=== PATIENT | male | born 1995 | race Caucasian/White ===

== ENCOUNTER 2020-11-16 08:24 | Emergency (ER) | payer OTHER ==
[2020-11-16] MEDS ORDERED: TETANUS & DIPHTHERIA TOX,ADULT 0.5 ML VIAL ONE (09:07)
--- NOTE | 2020-11-16 09:11 | EDPHYS ---
Physician Documentation [facility] Name: Phil Yoder Age: 25 yrs Sex: Male : 1995 Arrival Date: 11/16/2020 Time: 08:27 Bed 4 Private MD: ED Physician Sha Mota HPI: 11/16 08:58 This 25 yrs old Male presents to ER via Ambulatory with complaints of Finger ryan Laceration. Historical: - Allergies: 08:42 No Known Allergies; hb - Home Meds: 08:42 None [Active]; hb - PMHx: 08:42 None; hb - PSHx: 08:42 Knee - Right; hb - Social history:: Smoking status: Patient reports the use of cigarette tobacco products, smokes one pack cigarettes per day. ROS: 09:03 MS/extremity: Positive for laceration, of the palmar aspect of distal phalanx of right ryan middle finger. 09:06 Constitutional: Negative for fever, chills, and weight loss, Eyes: Negative for injury, ryan pain, redness, and discharge, ENT: Negative for injury, pain, and discharge, Neck: Negative for injury, pain, and swelling, Cardiovascular: Negative for chest pain, palpitations, and edema, Respiratory: Negative for shortness of breath, cough, wheezing, and pleuritic chest pain, Abdomen/GI: Negative for abdominal pain, nausea, vomiting, diarrhea, and constipation, Back: Negative for injury and pain, : Negative for injury, bleeding, discharge, and swelling, Skin: Negative for injury, rash, and discoloration, Psych: Negative for depression, anxiety, suicide ideation, homicidal ideation, and hallucinations, Allergy/Immunology: Negative for hives, rash, and allergies, Endocrine: Negative for neck swelling, polydipsia, polyuria, polyphagia, and marked weight changes, Hematologic/Lymphatic: Negative for swollen nodes, abnormal bleeding, and unusual bruising. 09:06 MS/extremity: Positive for Exam: 09:03 Constitutional: This is a well developed, well nourished patient who is awake, alert, ryan and in no acute distress. Head/Face: Normocephalic, atraumatic. Eyes: Pupils equal round and reactive to light, extra-ocular motions intact. Lids and lashes normal. Conjunctiva and sclera are non-icteric and not injected. Cornea within normal limits. Periorbital areas with no swelling, redness, or edema. ENT: Nares patent. No nasal discharge, no septal abnormalities noted. Tympanic membranes are normal and external auditory canals are clear. Oropharynx with no redness, swelling, or masses, exudates, or evidence of obstruction, uvula midline. Mucous membranes moist. Neck: Trachea midline, no thyromegaly or masses palpated, and no cervical lymphadenopathy. Supple, full range of motion without nuchal rigidity, or vertebral point tenderness. No Meningismus. Chest/axilla: Normal chest wall appearance and motion. Nontender with no deformity. No lesions are appreciated. Cardiovascular: Regular rate and rhythm with a normal S1 and S2. No gallops, murmurs, or rubs. Normal PMI, no JVD. No pulse deficits. Respiratory: Lungs have equal breath sounds bilaterally, clear to auscultation and percussion. No rales, rhonchi or wheezes noted. No increased work of breathing, no retractions or nasal flaring. Abdomen/GI: Soft, non-tender, with normal bowel sounds. No distension or tympany. No guarding or rebound. No evidence of tenderness throughout. Back: No spinal tenderness. No costovertebral tenderness. Full range of motion. Male : Normal genitalia with no discharge or lesions. Skin: Warm, dry with normal turgor. Normal color with no rashes, no lesions, and no evidence of cellulitis. Neuro: Awake and alert, GCS 15, oriented to person, place, time, and situation. Cranial nerves II-XII grossly intact. Motor strength 5/5 in all extremities. Sensory grossly intact. Cerebellar exam normal. Normal gait. Psych: Awake, alert, with orientation to person, place and time. Behavior, mood, and affect are within normal limits. 09:03 Musculoskeletal/extremity: Extremities: noted in the palmar aspect of distal phalanx of right middle finger: laceration, ROM: intact in all extremities, full active range of motion, full passive range of motion, Circulation is intact in all extremities. Sensation intact. Compartment Syndrome exam of affected extremity: is normal. DVT Exam: No signs of deep vein thrombosis. no pain, no swelling, no tenderness, negative Homans' sign noted on exam, no appreciated bluish discoloration, no erythema, no increased warmth. Vital Signs: 08:40 BP 136 / 82; Pulse 68; Resp 16; Temp 97.1; Pulse Ox 100% on R/A; Pain 3/10; hb MDM: 08:[address] [facility] 09:02 Data reviewed: vital signs, nurses notes, radiologic studies. [facility] 11/16 08:51 Order name: Wound dressing; Complete Time: 09:36 ryan Administered Medications: 09:30 Drug: Neosporin (konfoqrq-qxzapsnnjb-ivrddzuut) Ointment 1 application Route: Topical; em Site: wound; 09:37 Follow up: Response: Medication administered at discharge. em 09:36 Not Given (Other Intervention Used): Bactroban (mupirocin) Ointment 2 % 1 application em Topical once Disposition: 11/16/20 09:10 Discharged to Home. Impression: Laceration without foreign body of finger without damage to nail - superficial. - Condition is Stable. - Discharge Instructions: Laceration Care, Adult, Laceration Care, Adult, [id number]. - Prescriptions for Tylenol- Codeine #3 300-30 mg Oral Tablet - take 2 tablets by ORAL route every 4-6 hours As needed; 20 tablet. Bactroban 2 % Topical Ointment - Apply to affected area 1 application by TOPICAL route every 12 hours; 15 gram. - Medication Reconciliation Form, Thank You Letter, Antibiotic Education, Prescription Opioid Use, Work release form form. - Follow up: Private Physician; When: 2 - 3 days; Reason: Recheck today's complaints, Continuance of care, Re-evaluation by your physician. Follow up: Zach Fowler MD; When: 2 - 3 days; Reason: Recheck today's complaints, Re-evaluation by your physician. - Problem is new. - Symptoms have improved. Signatures: Sha Mota MD MD cha Munoz, Edgar, RN RN Hilary Becker RN RN Corrections: (The following items were deleted from the chart) 09:02 08:58 The patient presents with decreased range of motion, pain, [facility] 09:02 08:58 The complaints affect the back of neck, [facility] 09:03 08:59 Constitutional: Negative for fever, chills, and weight loss, Eyes: Negative for [facility] injury, pain, redness, and discharge, ENT: Negative for injury, pain, and discharge, Cardiovascular: Negative for chest pain, palpitations, and edema, Respiratory: Negative for shortness of breath, cough, wheezing, and pleuritic chest pain, Abdomen/GI: Negative for abdominal pain, nausea, vomiting, diarrhea, and constipation, Back: Negative for injury and pain, : Negative for injury, bleeding, discharge, and swelling, Skin: Negative for injury, rash, and discoloration, Neuro: Negative for headache, weakness, numbness, tingling, and seizure, Psych: Negative for depression, anxiety, suicide ideation, homicidal ideation, and hallucinations, Allergy/Immunology: Negative for hives, rash, and allergies, Endocrine: Negative for neck swelling, polydipsia, polyuria, polyphagia, and marked weight changes, Hematologic/Lymphatic: Negative for swollen nodes, abnormal bleeding, and unusual bruising, [facility] 09:03 08:59 MS/extremity: Positive for decreased range of motion, pain, tenderness, of the [facility] right knee, [facility] 09:03 08:59 Constitutional: This is a well developed, well nourished patient who is awake, ryan alert, and in no acute distress. Head/Face: Normocephalic, atraumatic. Eyes: Pupils equal round and reactive to light, extra-ocular motions intact. Lids and lashes normal. Conjunctiva and sclera are non-icteric and not injected. Cornea within normal limits. Periorbital areas with no swelling, redness, or edema. ENT: Nares patent. No nasal discharge, no septal abnormalities noted. Tympanic membranes are normal and external auditory canals are clear. Oropharynx with no redness, swelling, or masses, exudates, or evidence of obstruction, uvula midline. Mucous membranes moist. Chest/axilla: Normal chest wall appearance and motion. Nontender with no deformity. No lesions are appreciated. Cardiovascular: Regular rate and rhythm with a normal S1 and S2. No gallops, murmurs, or rubs. Normal PMI, no JVD. No pulse deficits. Respiratory: Lungs have equal breath sounds bilaterally, clear to auscultation and percussion. No rales, rhonchi or wheezes noted. No increased work of breathing, no retractions or nasal flaring. Abdomen/GI: Soft, non-tender, with normal bowel sounds. No distension or tympany. No guarding or rebound. No evidence of tenderness throughout. Back: No spinal tenderness. No costovertebral tenderness. Full range of motion. Male : Normal genitalia with no discharge or lesions. Skin: Warm, dry with normal turgor. Normal color with no rashes, no lesions, and no evidence of cellulitis. MS/ Extremity: Pulses equal, no cyanosis. Neurovascular intact. Full, normal range of motion. Neuro: Awake and alert, GCS 15, oriented to person, place, time, and situation. Cranial nerves II-XII grossly intact. Motor strength 5/5 in all extremities. Sensory grossly intact. Cerebellar exam normal. Normal gait. Psych: Awake, alert, with orientation to person, place and time. Behavior, mood, and affect are within normal limits. ryan 09:03 08:59 Neck: External neck: is normal, no acute changes, C-spine: appears grossly ryan normal, Thyroid: appears normal, Trachea: is midline with no obvious abnormalities, ryan 09:03 08:59 Chest/axilla: Exam negative for ryan ryan 09:03 08:59 Musculoskeletal/extremity: Compartment Syndrome exam of affected extremity: is ryan normal. no pain, no numbness, no tingling, no sensation deficit, no palor, no weak pulses, ryan 09:11 09:10 11/16/2020 09:10 Discharged to Home. Impression: Laceration without foreign body ryan of finger without damage to nail - superficial. Condition is Stable. Forms are Medication Reconciliation Form, Thank You Letter, Antibiotic Education, Prescription Opioid Use. Follow up: Private Physician; When: 2 - 3 days; Reason: Recheck today's complaints, Continuance of care, Re-evaluation by your physician. Problem is new. Symptoms have improved. ryan 09:37 09:11 11/16/2020 09:10 Discharged to Home. Impression: Laceration without foreign body em of finger without damage to nail - superficial. Condition is Stable. Forms are Medication Reconciliation Form, Thank You Letter, Antibiotic Education, Prescription Opioid Use. Follow up: Private Physician; When: 2 - 3 days; Reason: Recheck today's complaints, Continuance of care, Re-evaluation by your physician. Follow up: Zach Fowler; When: 2 - 3 days; Reason: Recheck today's complaints, Re-evaluation by your physician. Problem is new. Symptoms have improved. ryan
--- NOTE | 2020-11-16 09:11 | ER ---
Nurse's Notes [facility] Name: Phil Yoder Age: 25 yrs Sex: Male : 1995 Arrival Date: 11/16/2020 Time: 08:27 Bed 4 Private MD: Diagnosis: Laceration without foreign body of finger without damage to nail-superficial Presentation: 11/16 08:40 Chief complaint: Laceration to right middle finger with serrated knife. Bleeding hb controlled. Coronavirus screen: At this time, the client does not indicate any symptoms associated with coronavirus-19. Ebola Screen: No symptoms or risks identified at this time. Initial Sepsis Screen: Does the patient meet any 2 criteria? No. Patient's initial sepsis screen is negative. Does the patient have a suspected source of infection? No. Patient's initial sepsis screen is negative. Risk Assessment: Do you want to hurt yourself or someone else? Patient reports no desire to harm self or others. Onset of symptoms was November 16, 2020. 08:40 Method Of Arrival: Ambulatory hb 08:40 Acuity: BAKARI 4 hb Historical: - Allergies: 08:42 No Known Allergies; hb - Home Meds: 08:42 None [Active]; hb - PMHx: 08:42 None; hb - PSHx: 08:42 Knee - Right; hb - Social history:: Smoking status: Patient reports the use of cigarette tobacco products, smokes one pack cigarettes per day. Screenin:44 Abuse screen: Denies threats or abuse. Nutritional screening: No deficits noted. em Tuberculosis screening: No symptoms or risk factors identified. Fall Risk None identified. Assessment: 08:45 General: Appears in no apparent distress. comfortable, Behavior is calm, cooperative, em appropriate for age. Pain: Complains of pain in palmar aspect of distal phalanx of right middle finger Pain currently is 3 out of 10 on a pain scale. Neuro: Level of Consciousness is awake, alert, obeys commands, Oriented to person, place, time, situation. Cardiovascular: Capillary refill < 3 seconds Patient's skin is warm and dry. Respiratory: Airway is patent Respiratory effort is even, unlabored, Respiratory pattern is regular, symmetrical. Derm: Skin is intact, is healthy with good turgor, Skin is pink, warm \T\ dry. Musculoskeletal: Capillary refill < 3 seconds, Range of motion: intact in all extremities. Injury Description: Laceration sustained to palmar aspect of distal phalanx of right middle finger is clean, 0.5 to 2.5 cm long, was sustained 30-60 minutes ago. a small amount of bleeding noted at this time. Vital Signs: 08:40 BP 136 / 82; Pulse 68; Resp 16; Temp 97.1; Pulse Ox 100% on R/A; Pain 3/10; hb ED Course: 08:27 Patient arrived in ED. mr 08:41 Triage completed. hb 08:42 Arm band placed on. hb 08:44 Sha Mota MD is Attending Physician. ryan 08:44 Emory Cabral, RN is Primary Nurse. em 08:44 Patient has correct armband on for positive identification. Call light in reach. em 09:10 Zach Fowler MD is Referral Physician. ryan 09:35 No provider procedures requiring assistance completed. Patient did not have IV access em during this emergency room visit. Administered Medications: 09:30 Drug: Neosporin (uefixhqr-vzqwfpvkap-rdruapxoc) Ointment 1 application Route: Topical; em Site: wound; 09:37 Follow up: Response: Medication administered at discharge. em 09:36 Not Given (Other Intervention Used): Bactroban (mupirocin) Ointment 2 % 1 application em Topical once Outcome: 09:10 Discharge ordered by . ryan 09:35 Discharged to home ambulatory, with family. em 09:35 Condition: good 09:35 Discharge instructions given to patient, family, Instructed on discharge instructions, follow up and referral plans. medication usage, wound care, Demonstrated understanding of instructions, follow-up care, medications, wound care, Prescriptions given X 2. 09:37 Patient left the ED. em Signatures: Sha Mota MD MD cha Rivera, Mary mr Emory Cabral, KERLINE RN em Hilary Becker RN RN
[2020-11-16 09:43] VITALS: BP 136/82; TEMP 97.1; O2SAT 100
== END 2020-11-16 09:37 | disposition home or self-care (01) ==
LOC: ER 08:24
DX: S61.212A Laceration without foreign body of right middle finger without damage to nail, initial encounter (principal); F17.210 Nicotine dependence, cigarettes, uncomplicated
CPT/HCPCS: 90714; 99283

== ENCOUNTER 2023-06-17 12:38 | Emergency (ER) | payer SELFPAY ==
--- NOTE | 2023-06-17 13:32 | RAD REPORT ---
EXAM DESCRIPTION: CT - Chest For Pe Angio - 06/17/2023 1:17 pm CLINICAL HISTORY: Chest pain COMPARISON: None. TECHNIQUE: Dynamically enhanced axial 3 mm thick images of the chest were obtained during administra tion of 100 mL Isovue 370 IV contrast. Coronal and oblique reconstruction images were generated and r eviewed. Exam utilizes a protocol for optimal evaluation of pulmonary arterial tree. Maximum intensity projections 3D imaging was utilized All CT scans are performed using dose optimization technique as appropriate and may include automated exposure control or mA/KV adjustment according to patient size. FINDINGS: A pulmonary embolus is not seen. A thoracic aortic aneurysm is not noted. A pleural effusion is not seen. A pericardial effusion is not seen. A lung consolidation is not present. IMPRESSION: Negative for a pulmonary embolism.
[2023-06-17 13:36] LABS: Hematocrit 49.2 % (39.6-49.0); Lymphocytes % 29.9 % (15.3-44.8); MCV 82.2 fL (80-100); MPV 8.1 fL (7.6-11.3); Platelets 256 thou/uL (152-406); RBC Red Blood Cell Count 5.99 M/uL (4.33-5.43)
--- NOTE | 2023-06-17 13:38 | RAD REPORT ---
EXAM DESCRIPTION: CT - Stone Protocol - 06/17/2023 1:17 pm CLINICAL HISTORY: Abdominal pain. Flank pain. Back pain COMPARISON: None. TECHNIQUE: Computed axial tomography of the abdomen pelvis was obtained without oral or IV contrast. Lack of IV and oral contrast limits evaluation of solid organs, appendix, bowel, and vessels. Esqueda l reformatted images were obtained and reviewed. All CT scans are performed using dose optimization technique as appropriate and may include automated exposure control or mA/KV adjustment according to patient size. FINDINGS: A renal calculus is not seen. An ureteral calculus is not noted. A bladder calculus is not present. No hydronephrosis The liver, spleen, pancreas and adrenals appear grossly normal There is no evidence of diverticulitis. The appendix appears normal Mild posterior subluxation L5 on S1. Mild spondylosis. Tiny umbilical hernia IMPRESSION: Negative for a genitourinary calculus
[2023-06-17 13:56] LABS: Albumin 4.4 g/dL (3.4-5.0); Bilirubin Direct 0.1 mg/dL (0-0.2); Bilirubin Indirect, Calculated 0.4 mg/dL (0.2-0.8); Bilirubin Total 0.5 mg/dL (0.2-1.0); Potassium 4.1 mEq/L (3.5-5.1); Protein, Total 8.8 g/dL (6.4-8.2); Troponin High Sensitivity 4.3 pg/mL (<58.9)
--- NOTE | 2023-06-17 14:33 | RAD REPORT ---
EXAM DESCRIPTION: Wendie Single View06/17/2023 2:13 pm CLINICAL HISTORY: Pleuritic pain COMPARISON: none FINDINGS: The lungs appear clear of acute infiltrate. The heart is normal size IMPRESSION: No acute abnormalities displayed
--- NOTE | 2023-06-17 14:54 | EDPHYS ---
Physician Documentation [facility] Name: Phil Yoder Age: 27 yrs Sex: Male : 1995 Arrival Date: 06/17/2023 Time: 12:38 Bed DIS3 Private MD: ED Physician Braden Winn HPI: 06/17 12:56 This 27 yrs old Male presents to ER via Ambulatory with complaints of Back Pain, rn Breathing Difficulty. 12:56 The patient presents with pain that is acute, with no known mechanism of injury. The rn symptoms are located in the thoracic area. Onset: The symptoms/episode began/occurred just prior to arrival. The pain does not radiate. Associated signs and symptoms: Pertinent negatives: abdominal pain, fever, hematuria, tingling, urinary retention, vomiting, weakness. Modifying factors: The patient symptoms are alleviated by remaining still, the patient symptoms are aggravated by any movement, Deep breath. 12:56 Severity of symptoms: At their worst the symptoms were moderate, in the emergency rn department the symptoms have improved. The patient has not experienced similar symptoms in the past. The patient has not recently seen a physician. Patient reports felt entirely fine earlier today, was at work, no fall or trauma, then started to feel sharp stabbing pain intrascapular area. Denies any fever or recent illness. Denies radiation. Family member with kidney stones but denies any pain to the abdomen or groin. Denies urinary symptoms. Does smoke. Has never felt this before. No history of DVT or PE.. Historical: - Allergies: 12:46 No Known Allergies; cm10 - Home Meds: 12:46 None [Active]; cm10 - PMHx: 12:46 None; cm10 - PSHx: 12:46 None; cm10 - Immunization history:: Adult Immunizations unknown. - Social history:: Smoking status: Patient reports the use of cigarette tobacco products, smokes one-half pack cigarettes per day. - Family history:: not pertinent. - Hospitalizations: : No recent hospitalization is reported. ROS: 12:56 Constitutional: Negative for fever, chills, and weight loss, Eyes: Negative for injury, rn pain, redness, and discharge, Cardiovascular: Negative for chest pain, palpitations, and edema, Respiratory: Positive for pleuritic thoracic pain, negative for shortness of breath, negative for cough or hemoptysis Abdomen/GI: Negative for abdominal pain, nausea, vomiting, diarrhea, and constipation, Back: Positive for interscapular back pain MS/Extremity: Negative for injury and deformity, Skin: Negative for injury, rash, and discoloration, Neuro: Negative for headache, weakness, numbness, tingling, and seizure, Exam: 12:56 Constitutional: This is a well developed, well nourished patient who is awake, alert, rn in wheelchair and appears uncomfortable while talking and deep inspiration Head/Face: Normocephalic, atraumatic. Cardiovascular: Regular rate and rhythm. No pulse deficits. Respiratory: No increased work of breathing, no retractions or nasal flaring. Abdomen/GI: Soft, non-tender Back: No spinal tenderness, no costovertebral tenderness Vital Signs: 12:44 BP 129 / 84; Pulse 66; Resp 18 S; Temp 97.3(IR); Pulse Ox 99% on R/A; Weight 117.93 kg; cm10 Height 6 ft. 2 in. ; Pain 8/10; 12:44 Body Mass Index 33.38 (117.93 kg, 187.96 cm) cm10 12:44 Pain Scale: Adult cm10 MDM: 12:41 Patient medically screened. rn 14:50 Differential diagnosis: Pleurisy, pneumonia, PE, nerve pain, lung problem. Data rn reviewed: vital signs, nurses notes, lab test result(s), radiologic studies, CT scan, and as a result, I will discharge patient. Independent interpretation of the following test(s) in the Emergency Department X-Ray: My interpretation is Chest x-ray images negative for pneumothorax or pneumonia per my interpretation. Counseling: I had a detailed discussion with the patient and/or guardian regarding the historical points, exam findings, and any diagnostic results supporting the discharge/admit diagnosis, lab results, radiology results, the need for outpatient follow up, to return to the emergency department if symptoms worsen or persist or if there are any questions or concerns that arise at home. Special discussion: I discussed with the patient/guardian in detail that at this point there is no indication for admission to the hospital. It is understood, however, that if the symptoms persist or worsen the patient needs to return immediately for re-evaluation. ED course: No acute abnormalities found on chest x-ray or CT imaging of chest or abdomen pelvis. No oxygen requirement. No fever. Will DC home with return precautions as could be early process and could be very early in the continuing.. 06/17 12:55 Order name: Basic Metabolic Panel; Complete Time: 14:06 rn 06/17 12:55 Order name: CBC with Diff; Complete Time: 13:42 rn 06/17 12:55 Order name: LFT's; Complete Time: 14:06 rn 06/17 12:55 Order name: Troponin HS; Complete Time: 14:06 rn 06/17 12:55 Order name: XRAY Chest (1 view); Complete Time: 14:42 rn 06/17 12:55 Order name: CT Chest For PE Angio; Complete Time: 13:42 rn 06/17 12:55 Order name: CT Stone Protocol; Complete Time: 13:42 rn 06/17 12:55 Order name: Cardiac monitoring rn 06/17 12:55 Order name: EKG - Nurse/Tech rn 06/17 12:55 Order name: IV Saline Lock rn 06/17 12:55 Order name: Labs collected and sent rn 06/17 12:55 Order name: O2 Per Protocol rn 06/17 12:55 Order name: O2 Sat Monitoring rn Administered Medications: 14:19 CANCELLED (Duplicate Order): [id number] mg IVP once rn 14:19 CANCELLED (Duplicate Order): [id number] mg IVP once rn Disposition Summary: 06/17/23 14:53 Discharge Ordered Notes: Location: Home rn Problem: new rn Symptoms: have improved rn Condition: Stable rn Diagnosis - Back pain rn - Pleurisy rn Followup: rn - With: Private Physician - When: As needed - Reason: Recheck today's complaints, Re-evaluation by your physician Discharge Instructions: - Discharge Summary Sheet rn - Acute Back Pain, Adult rn - Pleurisy rn Forms: - Medication Reconciliation Form rn - Thank You Letter 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 rn rn 14:19 14:19 Ketorolac IVP 30 mg IVP once ordered. rn rn
--- NOTE | 2023-06-17 14:54 | ER ---
Nurse's Notes [facility] Name: Phil Yoder Age: 27 yrs Sex: Male : 1995 Arrival Date: 06/17/2023 Time: 12:38 Bed DIS3 Private MD: Diagnosis: Back pain;Pleurisy Presentation: 06/17 12:44 Chief complaint: Patient states: Back pain to the center of his back onset 30 minutes cm10 [employer]. 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 Coronavirus screen: Vaccine status: Patient reports being unvaccinated. Client denies travel out of the [place] in the last 14 days. Ebola Screen: Patient denies travel to an Ebola-affected area in the 21 days before illness onset. No symptoms or risks identified at this time. Initial Sepsis Screen: Does the patient meet any 2 criteria? No. Patient's initial sepsis screen is negative. Does the patient have a suspected source of infection? No. Patient's initial sepsis screen is negative. Risk Assessment: Do you want to hurt yourself or someone else? Patient reports no desire to harm self or others. Onset of symptoms was June 17, 2023. 12:44 Method Of Arrival: Ambulatory cm10 12:44 Acuity: BAKARI 4 cm10 13:18 Acuity: BAKARI 3 cm10 Triage Assessment: 12:46 General: Appears in no apparent distress. uncomfortable, Behavior is calm, cooperative. cm10 Pain: Complains of pain in back Pain currently is 8 out of 10 on a pain scale. Quality of pain is described as aching, shooting, Pain began suddenly, 30 min ago. Neuro: No deficits noted. Level of Consciousness is awake, alert, obeys commands, Oriented to person, place, time, situation. Cardiovascular: No deficits noted. Patient's skin is warm and dry. Respiratory: No deficits noted. Airway is patent Respiratory effort is even, unlabored, Respiratory pattern is regular, symmetrical. GI: No deficits noted. No signs and/or symptoms were reported involving the gastrointestinal system. : No deficits noted. No signs and/or symptoms were reported regarding the genitourinary system. Derm: No deficits noted. No signs and/or symptoms reported regarding the dermatologic system. Skin is intact, Skin is pink, warm \T\ dry. Musculoskeletal: Range of motion: intact in all extremities, Reports pain in back. Historical: - Allergies: 12:46 No Known Allergies; cm10 - Home Meds: 12:46 None [Active]; cm10 - PMHx: 12:46 None; cm10 - PSHx: 12:46 None; cm10 - Immunization history:: Adult Immunizations unknown. - Social history:: Smoking status: Patient reports the use of cigarette tobacco products, smokes one-half pack cigarettes per day. - Family history:: not pertinent. - Hospitalizations: : No recent hospitalization is reported. Vital Signs: 12:44 BP 129 / 84; Pulse 66; Resp 18 S; Temp 97.3(IR); Pulse Ox 99% on R/A; Weight 117.93 kg; cm10 Height 6 ft. 2 in. ; Pain 8/10; 12:44 Body Mass Index 33.38 (117.93 kg, 187.96 cm) cm10 12:44 Pain Scale: Adult cm10 ED Course: 12:41 Patient arrived in ED. mr 12:41 Braden Winn MD is Attending Physician. rn 12:45 Triage completed. cm10 12:46 Arm band placed on Patient placed in waiting room. cm10 13:19 CT Chest For PE Angio In Process Unspecified. EDMS 13:19 CT Stone Protocol In Process Unspecified. EDMS 13:21 CT completed. Patient tolerated procedure well. Note: 20g to rt ac by em in ct. labs sj collected n sent.. Patient taken to lobby, via wheelchair. 14:14 XRAY Chest (1 view) In Process Unspecified. EDMS Administered Medications: 14:19 CANCELLED (Duplicate Order): [id number] mg IVP once rn 14:19 CANCELLED (Duplicate Order): [id number] mg IVP once rn Outcome: 14:53 Discharge ordered by . rn 14:59 Patient left the ED. hb Signatures: Dispatcher [employer] EDMS Kirill Radha, Jimbo Choi mr Vines Em Braden Bunch MD MD rn Baxter, Heather, RN RN hb Martinez, Clarissa, RN RN Zoë
[2023-06-17 15:06] VITALS: BP 129/84; TEMP 97.3; O2SAT 99
[2023-06-17] MEDS ORDERED: KETOROLAC 30 MG/ML INJ ONE (15:42)
[2023-06-17] MEDS ORDERED: GABAPENTIN 300 MG CAP ONE (15:42)
== END 2023-06-17 14:59 | disposition home or self-care (01) ==
LOC: ER 12:38
DX: M54.9 Dorsalgia, unspecified (principal); R09.1 Pleurisy
CPT/HCPCS: 36415; 71045; 71275; 74176; 76377; 80048; 80076; 84484; 85025; 99281; Q9967